=== PATIENT | male | born 1950 | race Caucasian/White ===

== ENCOUNTER → 2016-07-22 | Outpatient (CLI) | payer OTHER ==
--- NOTE | 2016-07-22 10:47 | US ---
EXAM DESCRIPTION: Renal Arteries (accession [id number]), Renal (accession [id number]) CLINICAL HISTORY: 66 years Male, ESSENTIAL HYPERTENSION COMPARISON: None. TECHNIQUE: Grayscale, color Doppler and spectral Doppler imaging of bilateral kidneys was performed. Stenosis was calculated indirectly based on peak systolic velocity. FINDINGS: The peak systolic velocity of the right renal artery is one 35 cm/s. The peak systolic velocity of the abdominal aorta is 71 cm/s. The peak systolic velocity of the left renal artery is 10 4 cm/s. The right kidney measures 10 cm in diameter. Negative for obstruction. The left kidney measures 10.2 cm in diameter. Negative for obstruction. IMPRESSION: Today's exam demonstrates a normal sized kidneys. No evidence of abnormal peak systolic velocity or ratio within bilateral renal arteries to suggest renal artery stenosis. Electronically signed by: Dilip Burrell MD 07/22/2016 10:46 AM CDT
--- NOTE | 2016-07-22 10:47 | US ---
EXAM DESCRIPTION: Renal Arteries (accession [id number]), Renal (accession [id number]) CLINICAL HISTORY: 66 years Male, ESSENTIAL HYPERTENSION COMPARISON: None. TECHNIQUE: Grayscale, color Doppler and spectral Doppler imaging of bilateral kidneys was performed. Stenosis was calculated indirectly based on peak systolic velocity. FINDINGS: The peak systolic velocity of the right renal artery is one 35 cm/s. The peak systolic velocity of the abdominal aorta is 71 cm/s. The peak systolic velocity of the left renal artery is 10 4 cm/s. The right kidney measures 10 cm in diameter. Negative for obstruction. The left kidney measures 10.2 cm in diameter. Negative for obstruction. IMPRESSION: Today's exam demonstrates a normal sized kidneys. No evidence of abnormal peak systolic velocity or ratio within bilateral renal arteries to suggest renal artery stenosis. Electronically signed by: Dilip Burrell MD 07/22/2016 10:46 AM CDT
== END | disposition home or self-care (01) ==
LOC: US 09:07
PROVIDERS: ATTEND Family Medicine
DX: I10 Essential (primary) hypertension (principal)

== ENCOUNTER → 2016-08-26 | Outpatient (CLI) | payer OTHER | END | disposition home or self-care (01) | LOC: GMAB 08:58 | PROVIDERS: ATTEND Family Medicine | DX: I12.9 Hypertensive chronic kidney disease with stage 1 through stage 4 chronic kidney disease, or unspecified chronic kidney disease (principal); N18.4 Chronic kidney disease, stage 4 (severe) ==

== ENCOUNTER → 2018-04-13 | Outpatient (CLI) | payer MEDICARE, BC | LOC: GMAE 11:01 | PROVIDERS: ATTEND Family Medicine | DX: Z12.5 Encounter for screening for malignant neoplasm of prostate (principal); I10 Essential (primary) hypertension; E10.65 Type 1 diabetes mellitus with hyperglycemia | CPT/HCPCS: 84443; G0103 ==

== ENCOUNTER → 2019-06-07 | Outpatient (CLI) | payer MEDICARE, BC | LOC: GMAE 10:15 | PROVIDERS: ATTEND Family Medicine | DX: Z12.5 Encounter for screening for malignant neoplasm of prostate (principal); I10 Essential (primary) hypertension; E10.9 Type 1 diabetes mellitus without complications | CPT/HCPCS: 84443; G0103 ==